=== PATIENT | female | born 1975 | race Caucasian/White ===

== ENCOUNTER 2021-08-19 22:03 | Emergency (ER) | payer OTHER ==
[~2021-08-19] VITALS: Ht 149.9 cm; Wt 71.0 kg
[2021-08-19 22:19] VITALS: BP 143/77
--- NOTE | 2021-08-19 22:25 | NUR ---
pt ambulated to bed 5.
--- NOTE | 2021-08-19 22:43 | NUR ---
46 Y/O FEMALE BIB FAMILY, C/O PAIN TO R EYE X10 HRS. PATIENT PRESENTS TO ED WITH RED, SWOLLEN, CRUSTY R EYE. PT STATES WHEN PUTTING DEODORANT ON THIS MORNING THE SPRAY ALSO WENT INTO HER EYE. DENIES N/V/D; SKIN IS PINK/WARM/DRY; AAOX4 WITH EVEN AND STEADY GAIT; LUNGS CLEAR BL; HR EVEN AND REGULAR; PT DENIES ANY FEVER, CP, SOB, OR COUGH AT THIS TIME; PATIENT STATES PAIN OF 8/10 ONLY WHEN SHE OPENS HER EYE, AND NO PAIN WHEN SHE KEEPS IT CLOSED; VSS; PATIENT POSITIONED FOR COMFORT; HOB ELEVATED; BEDRAILS UP X2; BED DOWN. ER MD MADE AWARE OF PT STATUS. HX: UTERINE FIBROIDS NKA MEDS: IRON SUPP.
--- NOTE | 2021-08-19 23:08 | NUR ---
ER MD AT BEDSIDE ASSESSING PT
[2021-08-19] MEDS ORDERED: TETRACAINE 1% 2 ML AMP INJ ONE (23:15)
[2021-08-19] MEDS ORDERED: FLUORESCEIN OPTH STRIP 1 MG OP ONE (23:15)
[2021-08-20] MEDS ORDERED: TETRACAINE HCL/PF 0.5% OPTH 4 ML BTL OP ONE
--- NOTE | 2021-08-20 00:11 | NUR ---
AT BEDSIDE PERFORMING PROCEDURE
[2021-08-20] MEDS ORDERED: POLY10SO OP (00:20)
[2021-08-20 00:28] VITALS: BP 143/77
--- NOTE | 2021-08-20 00:28 | NUR ---
Patient discharged with v/s stable. Written and verbal after care instructions given and explained. Patient alert, oriented and verbalized understanding of instructions. Ambulatory with steady gait. All questions addressed prior to discharge. ID band removed. Patient advised to follow up with PMD. Rx of Polymyxin B Sulf/ Trimethoprim given. Patient educated on indication of medication including possible reaction and side effects. Opportunity to ask questions provided and answered. vss, a/ox4, unlabored breathing, and calm demeanor.
== END 2021-08-20 00:27 | disposition home or self-care (01) ==
LOC: MED 22:03
DX: S05.01XA Injury of conjunctiva and corneal abrasion without foreign body, right eye, initial encounter (principal); H10.211 Acute toxic conjunctivitis, right eye; T49.2X5A Adverse effect of local astringents and local detergents, initial encounter; Z79.899 Other long term (current) drug therapy; X58.XXXA Exposure to other specified factors, initial encounter; Y93.89 Activity, other specified; Y92.89 Other specified places as the place of occurrence of the external cause; Y99.8 Other external cause status
CPT/HCPCS: 99283; J3490

== ENCOUNTER 2023-10-26 10:02 | Day surgery (SDC) | payer OTHER ==
[~2023-10-26] VITALS: Ht 147.3 cm; Wt 71.7 kg
[~2023-10-26 10:02] MED LIST: POLY10SO OP
[2023-10-26] MEDS ORDERED: fentaNYL citrate 0.05 MG/ML VIAL ONE (12:04)
[2023-10-26] MEDS: fentaNYL citrate 0.05 MG/ML VIAL IVP ONE (12:52)
[2023-10-26] MEDS: LIDOCAINE 2% 100 MG/5 ML UJET TP ONE (12:56)
== END 2023-10-26 14:04 | disposition home or self-care (01) ==
LOC: MDS 10:02 → MMU 10:08 → MDS 14:04
PROVIDERS: ATTEND Internal Medicine Gastroenterology
DX: K62.5 Hemorrhage of anus and rectum (principal); K59.00 Constipation, unspecified; R10.30 Lower abdominal pain, unspecified; K64.8 Other hemorrhoids; I10 Essential (primary) hypertension; Z98.891 History of uterine scar from previous surgery; Z79.899 Other long term (current) drug therapy; Z98.890 Other specified postprocedural states
CPT/HCPCS: 45378; J3010